=== PATIENT | female | born 1965 | race Caucasian/White ===

== ENCOUNTER → 2018-03-12 | Emergency (ER) | payer OTHER ==
[~2018-03-12] VITALS: Ht 157.5 cm; Wt 55.3 kg
[~2018-03-12] MED LIST: DICLOFENAC POTA50 MG PO; ETODOLAC400 MG PO; NORFLEX100MG PO
== END | disposition home or self-care (01) ==
LOC: ER 12:03
DX: S61.211A Laceration without foreign body of left index finger without damage to nail, initial encounter (principal); W26.0XXA Contact with knife, initial encounter; Y93.89 Activity, other specified; Y92.098 Other place in other non-institutional residence as the place of occurrence of the external cause; Y99.8 Other external cause status

== ENCOUNTER → 2018-03-20 | Emergency (ER) | payer OTHER ==
[~2018-03-20] VITALS: Ht 162.6 cm; Wt 54.4 kg
== END | disposition home or self-care (01) ==
LOC: ER 07:55
DX: Z48.02 Encounter for removal of sutures (principal)

== ENCOUNTER 2018-09-18 02:16 | Emergency (ER) | payer OTHER ==
[~2018-09-18] VITALS: Ht 157.5 cm; Wt 54.4 kg
[2018-09-18] MEDS ORDERED: KETO10TA2 PO (04:15)
[2018-09-18] MEDS ORDERED: CEFADROXIL500 MG PO (04:15)
== END 2018-09-18 14:10 | disposition home or self-care (01) ==
LOC: ER 02:16
DX: S01.81XA Laceration without foreign body of other part of head, initial encounter (principal); S90.111A Contusion of right great toe without damage to nail, initial encounter; W18.39XA Other fall on same level, initial encounter; Y93.89 Activity, other specified; Y92.89 Other specified places as the place of occurrence of the external cause; Y99.8 Other external cause status

== ENCOUNTER 2020-07-27 12:15 | Emergency (ER) | payer OTHER ==
[~2020-07-27] VITALS: Ht 157.5 cm; Wt 55.3 kg
[~2020-07-27 12:15] MED LIST changes: +CEFADROXIL500 MG PO; +KETO10TA2 PO
[2020-07-27] MEDS ORDERED: ACID REDUCER20 M1 PO (12:32)
== END 2020-07-27 14:21 | disposition home or self-care (01) ==
LOC: ER 12:15
DX: S13.8XXA Sprain of joints and ligaments of other parts of neck, initial encounter (principal); S30.0XXA Contusion of lower back and pelvis, initial encounter; V49.88XA Car occupant (driver) (passenger) injured in other specified transport accidents, initial encounter; W22.12XA Striking against or struck by front passenger side automobile airbag, initial encounter; Y93.89 Activity, other specified; Y92.488 Other paved roadways as the place of occurrence of the external cause; Y99.8 Other external cause status

== ENCOUNTER 2020-12-22 04:41 | Emergency (ER) | payer OTHER ==
[~2020-12-22] VITALS: Ht 157.5 cm; Wt 53.1 kg
[~2020-12-22 04:41] MED LIST changes: +ACID REDUCER20 M1 PO
[2020-12-22] MEDS ORDERED: LEVSIN/SL0.125 MG SL (09:41)
== END 2020-12-22 09:46 | disposition home or self-care (01) ==
LOC: ER 04:41
DX: R10.13 Epigastric pain (principal)

== ENCOUNTER 2021-05-27 22:50 | Emergency (ER) | payer OTHER ==
[~2021-05-27] VITALS: Ht 157.5 cm; Wt 54.4 kg
[~2021-05-27 22:50] MED LIST changes: +LEVSIN/SL0.125 MG SL
[2021-05-28] MEDS ORDERED: LEVSIN/SL0.125 MG SL (08:52)
== END 2021-05-28 10:09 ==
LOC: ER 22:50
DX: K52.89 Other specified noninfective gastroenteritis and colitis (principal); Z20.822 Contact with and (suspected) exposure to COVID-19